=== PATIENT | female | born 1995 | race African-American/Black ===

== ENCOUNTER 2021-05-15 08:26 | Emergency (ER) | payer BC, OTHER ==
[~2021-05-15] VITALS: Ht 167.6 cm; Wt 74.8 kg
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
[2021-05-15 09:34] LABS: ABSOLUTE NEUTROPHILS 10.1 thou/uL (1.4-8.2); BASOPHILS 0.3 % (0.0-2.0); EOSINOPHILS 0.3 % (0.0-3.0); HEMATOCRIT 31.3 % (37.0-47.0); HEMOGLOBIN 9.5 gm/dL (12.0-15.0); LYMPHOCYTES 21.6 % (24.0-44.0); MCH 19.4 pg (26.0-34.0); MCHC 30.3 g/dL (28.0-37.0); MCV 63.9 fL (80.0-100.0); MONOCYTES 4.2 % (1.0-8.0); PLATELET COUNT 370 thou/uL (150-400); POLYS 73.6 % (36.0-66.0); RDW 17.3 % (10.5-14.5); WBC 13.7 thou/uL (4.0-11.0)
[2021-05-15 09:36] LABS: CALCIUM 9.1 mg/dL (8.5-10.1); CREATININE 1.1 mg/dL (0.6-1.0)
[2021-05-15 11:17] VITALS: BP 140/85
[2021-05-15 11:54] LABS: ANISOCYTOSIS 1+; MICROCYTES 3+
[2021-05-15 11:55] LABS: HYPOCHROMASIA 2+
[2021-05-15] MEDS ORDERED: FLEXERIL PO (17:37)
== END 2021-05-15 11:30 | disposition home or self-care (01) ==
LOC: ER 08:26
PROVIDERS: Emergency Medicine
DX: S40.012A Contusion of left shoulder, initial encounter (principal); S90.111A Contusion of right great toe without damage to nail, initial encounter; V89.2XXA Person injured in unspecified motor-vehicle accident, traffic, initial encounter; Y93.19 Activity, other involving water and watercraft; Y92.415 Exit ramp or entrance ramp of street or highway as the place of occurrence of the external cause; Y99.8 Other external cause status